=== PATIENT | female | born 1960 | race Caucasian/White ===

== ENCOUNTER 2021-01-29 16:21 | Emergency (ER) | payer MEDICAID ==
[~2021-01-29] VITALS: Ht 172.7 cm; Wt 128.2 kg
[2021-01-29] MEDS ORDERED: normal saline 1000ML IV soln IVB ONE (17:05)
[2021-01-29] MEDS ORDERED: LORazepam 2 mg/ml vial IV ONE (17:05)
--- NOTE | 2021-01-29 17:39 | NUR ---
iv from EMS placed prior to arrival infiltrated. Charge Nurse Haley Coronado notified and at bed side.
[2021-01-29 18:01] LABS: BASOPHILS % (AUTO) 0.6 % (0-1); EOSINOPHILS # (AUTO) 0.2 X10'3 (0-0.9); EOSINOPHILS % (AUTO) 1.9 % (0-6); HEMATOCRIT 38.6 % (35.0-45.0); HEMOGLOBIN 12.6 g/dl (12.0-16.0); LYMPHOCYTES # (AUTO) 1.9 X10'3 (1.1-4.8); LYMPHOCYTES % (AUTO) 22.4 % (21-51); MEAN CORPUSCULAR HEMOGLOBIN 29.4 PG (27.0-31.0); MEAN CORPUSCULAR HGB CONC 32.7 g/dL (33.0-36.5); MEAN PLATELET VOLUME 7.1 FL (7.4-10.4); MONOCYTES # (AUTO) 0.4 X10'3 (0-0.9); MONOCYTES % (AUTO) 4.7 % (2-12); NEUTROPHILS # (AUTO) 5.9 X10'3 (1.8-7.7); NEUTROPHILS % (AUTO) 70.4 % (42-75); PLATELET COUNT 418 X10'3 (140-440); RED BLOOD COUNT 4.29 X10'6 (4.20-5.60); RED CELL DISTRIBUTION WIDTH 14.8 % (11.5-14.5); WHITE BLOOD COUNT 8.4 X10'3 (4.5-11.0)
[2021-01-29 18:25] LABS: ALANINE AMINOTRANSFERASE 52 U/L (12-78); ALBUMIN 4.2 G/DL (3.4-5.0); ALBUMIN/GLOBULIN RATIO 1.1 (1.1-1.5); ALKALINE PHOSPHATASE 173 IU/L (46-116); ANION GAP 13 (8-16); ASPARTATE AMINO TRANSFERASE 24 U/L (10-37); BILIRUBIN,TOTAL 0.3 MG/DL (0.1-1.0); BLOOD UREA NITROGEN 9 MG/DL (7-18); BUN/CREATININE RATIO 8.9 (6.6-38.0); CALCIUM 9.9 MG/DL (8.5-10.1); CHLORIDE 103 MMOL/L (99-107); CREATININE 1.01 MG/DL (0.40-0.90); GLUCOSE 122 MG/DL (70-104); POTASSIUM 3.5 MMOL/L (3.5-5.1); SODIUM 140 MMOL/L (135-145); TOTAL PROTEIN 8.2 G/DL (6.4-8.2); eGFR 56 ML/MIN
[2021-01-29 18:28] LABS: ETHANOL < 0.010 GM/DL (0.0-0.010)
[2021-01-29 18:52] LABS: COLOR,URINE YELLOW (Yellow); GLUCOSE, URINE NEGATIVE (Neg); KETONES,URINE 15 mg/dl (Neg); LEUKOCYTE ESTERASE ,URINE NEGATIVE (Neg); NITRITES, URINE NEGATIVE (Neg); OCCULT BLOOD,URINE NEGATIVE (Neg); PH,URINE 5.5 (4.8-8.0); PROTEIN,URINE 100 mg/dl (Neg); UROBILINOGEN,URINE 0.2 E.U/dL (0.2-1.0)
[2021-01-29 19:01] LABS: UA COLLECTION TYPE CLN CATCH MIDSTREAM
[2021-01-29 19:02] LABS: CLARITY,URINE SLIGHTLY CLOUDY (Clear)
[2021-01-29 19:05] LABS: URINE AMPHETAMINE SCREEN NEGATIVE (Neg); URINE BARBITUATE SCREEN NEGATIVE (Neg); URINE BENZODIAZEPINES SCREEN NEGATIVE (Neg); URINE CANNABINOID SCREEN POSITIVE (Neg); URINE COCAINE SCREEN NEGATIVE (Neg); URINE METHADONE SCREEN NEGATIVE (Neg); URINE OPIATE SCREEN NEGATIVE (Neg); URINE PHENCYCLIDINE SCREEN NEGATIVE (Neg)
[2021-01-29 19:22] LABS: WBC,URINE 0-4 /HPF (0-4)
[2021-01-29 19:23] LABS: BACTERIA,URINE 1+ /HPF (Neg); MUCUS STRANDS MANY /LPF (Neg); RBC,URINE NONE SEEN /HPF (0-2); SQUAMOUS EPITHELIAL CELL,UR MANY /LPF (FEW)
[2021-01-29 19:24] LABS: FINE GRANULAR CAST 0-3 /LPF (NEGATIVE)
[2021-01-29 20:43] VITALS: BP 159/70
== END 2021-01-29 20:47 | disposition home or self-care (01) ==
LOC: ER 16:22
DX: R56.9 Unspecified convulsions (principal); F12.90 Cannabis use, unspecified, uncomplicated; Z88.6 Allergy status to analgesic agent; Z79.899 Other long term (current) drug therapy
CPT/HCPCS: 36415; 80053; 80305; 80320; 81001; 85025; 96361; 96374; 99283; J2060; J7030

== ENCOUNTER 2021-03-10 17:40 | Emergency (ER) | payer MEDICAID ==
[~2021-03-10] VITALS: Ht 172.7 cm; Wt 118.0 kg
[2021-03-10] MEDS ORDERED: sulfamethoxazole/trimethoprim DS (800/160mg) tablet PO ONE (18:55)
[2021-03-10] MEDS ORDERED: acetaminophen 325mg tablet PO ONE (18:55)
[2021-03-10] MEDS ORDERED: LORazepam 0.5 MG tablet PO PRN (18:55)
[2021-03-10] MEDS ORDERED: LEVA15HF6 PO (19:37)
[2021-03-10] MEDS ORDERED: SUCR1TAB PO (19:37)
[2021-03-10] MEDS ORDERED: BUDE10.27 PO (19:37)
[2021-03-10] MEDS ORDERED: CETI10TA14 PO (19:37)
[2021-03-10] MEDS ORDERED: PANT40TA54 PO (19:37)
[2021-03-10] MEDS ORDERED: METF-436 PO (19:37)
[2021-03-10] MEDS ORDERED: AMYL1CAP56 PO (19:37)
[2021-03-10] MEDS ORDERED: AMYL1CAP57 PO (19:37)
[2021-03-10] MEDS ORDERED: LEVE10006 PO (19:37)
[2021-03-10] MEDS ORDERED: AMLO5TAB16 PO (19:37)
[2021-03-10] MEDS ORDERED: MESA1.2T3 PO (19:37)
[2021-03-10] MEDS ORDERED: TIOT4MIS5 INH (19:37)
[2021-03-10] MEDS ORDERED: QUET400T12 PO (19:37)
[2021-03-10] MEDS ORDERED: BECL10.62 IH (19:37)
[2021-03-10] MEDS ORDERED: MIRT-88 PO (19:37)
[2021-03-10] MEDS ORDERED: PRAZ2CAP2 PO (19:37)
[2021-03-10 19:59] LABS: BASOPHILS % (AUTO) 0.4 % (0-1); EOSINOPHILS # (AUTO) 0.3 X10'3 (0-0.9); EOSINOPHILS % (AUTO) 2.7 % (0-6); HEMATOCRIT 35.9 % (35.0-45.0); HEMOGLOBIN 11.7 g/dl (12.0-16.0); LYMPHOCYTES # (AUTO) 1.7 X10'3 (1.1-4.8); LYMPHOCYTES % (AUTO) 18.1 % (21-51); MEAN CORPUSCULAR HEMOGLOBIN 28.9 PG (27.0-31.0); MEAN CORPUSCULAR HGB CONC 32.6 g/dL (33.0-36.5); MEAN CORPUSCULAR VOLUME 88.7 FL (78-98); MEAN PLATELET VOLUME 7.1 FL (7.4-10.4); MONOCYTES # (AUTO) 0.5 X10'3 (0-0.9); MONOCYTES % (AUTO) 4.9 % (2-12); NEUTROPHILS # (AUTO) 7.1 X10'3 (1.8-7.7); NEUTROPHILS % (AUTO) 73.9 % (42-75); PLATELET COUNT 416 X10'3 (140-440); RED BLOOD COUNT 4.04 X10'6 (4.20-5.60); RED CELL DISTRIBUTION WIDTH 15.2 % (11.5-14.5); WHITE BLOOD COUNT 9.6 X10'3 (4.5-11.0)
[2021-03-10 20:10] LABS: ALANINE AMINOTRANSFERASE 52 U/L (12-78); ALBUMIN 3.6 G/DL (3.4-5.0); ALBUMIN/GLOBULIN RATIO 0.9 (1.1-1.5); ALKALINE PHOSPHATASE 175 IU/L (46-116); ANION GAP 11 (8-16); ASPARTATE AMINO TRANSFERASE 15 U/L (10-37); BILIRUBIN,TOTAL 0.3 MG/DL (0.1-1.0); BLOOD UREA NITROGEN 10 MG/DL (7-18); BUN/CREATININE RATIO 10.9 (6.6-38.0); CALCIUM 9.2 MG/DL (8.5-10.1); CHLORIDE 104 MMOL/L (99-107); CREATININE 0.92 MG/DL (0.40-0.90); GLUCOSE 123 MG/DL (70-104); POTASSIUM 3.2 MMOL/L (3.5-5.1); SODIUM 142 MMOL/L (135-145); TOTAL CARBON DIOXIDE 26.9 MMOL/L (24-32); TOTAL PROTEIN 7.5 G/DL (6.4-8.2); eGFR 62 ML/MIN
[2021-03-10 20:19] LABS: ETHANOL < 0.010 GM/DL (0.0-0.010)
[2021-03-10] MEDS ORDERED: levalbuterol 1.25mg/0.5ml nebule IH PRN (20:45)
[2021-03-10] MEDS ORDERED: LIPASE/PROTEASE/AMYLASE 4,200 unit CAPSULE.DR PO PRN (20:45)
[2021-03-10] MEDS ORDERED: quetiapine 100mg tablet PO SCH (21:00)
[2021-03-10] MEDS ORDERED: mirtazapine 15mg tablet PO SCH (21:00)
[2021-03-10] MEDS ORDERED: prazosin 1mg capsule PO SCH (21:00)
--- NOTE | 2021-03-10 23:50 | NUR ---
Pt in main ER at start of shift. Transported to [facility] by Fior nayak on stretcher at 1860. Pt cooperative tearful at times. Seen by PA at 1840. Lainey inventoried home meds taken to pharmacy. Home meds ordered. Med Rec complete. Pt has numerous red areas right axillary areas. Some are open and moist. Examined by PA. Home Cpap in use per with O2. Pt is sleeping at this time.
[2021-03-11] MEDS ORDERED: ipratropium 0.5 MG/2.5ML nebule NEB SCH (02:00)
[2021-03-11] MEDS ORDERED: albuterol 2.5 MG/3 ML nebule NEB SCH (02:00)
[2021-03-11] MEDS: ipratropium/albuterol 3ml nebule NEB SCH ×4 (03:00→20:28)
--- NOTE | 2021-03-11 03:25 | NUR ---
PT SLEEPING COMFORTABLY, DOESN'T WANT WOKEN FOR 0300 MAINTENANCE SVN PER RN
--- NOTE | 2021-03-11 06:05 | NUR ---
Up independantly using FWW to bathroom. Urine sent to lab. Medical Hx obtained from pt. Suicide assessment done. Pt cooperative but irritable. back to sleep at this time.
--- NOTE | 2021-03-11 06:07 | NUR ---
Wounds to rt axillary cleaned with normal saline padded with clean gauze. Red serous drainage on gauze.
[2021-03-11 06:10] LABS: URINE HCG NEGATIVE (NEG)
[2021-03-11 06:18] LABS: URINE AMPHETAMINE SCREEN NEGATIVE (Neg); URINE BARBITUATE SCREEN NEGATIVE (Neg); URINE BENZODIAZEPINES SCREEN NEGATIVE (Neg); URINE CANNABINOID SCREEN POSITIVE (Neg); URINE COCAINE SCREEN NEGATIVE (Neg); URINE METHADONE SCREEN NEGATIVE (Neg); URINE OPIATE SCREEN NEGATIVE (Neg); URINE PHENCYCLIDINE SCREEN NEGATIVE (Neg)
[2021-03-11 06:27] LABS: CLARITY,URINE CLEAR (Clear); COLOR,URINE YELLOW (Yellow); GLUCOSE, URINE NEGATIVE (Neg); KETONES,URINE >=80 mg/dl (Neg); LEUKOCYTE ESTERASE ,URINE NEGATIVE (Neg); NITRITES, URINE NEGATIVE (Neg); OCCULT BLOOD,URINE NEGATIVE (Neg); PROTEIN,URINE NEGATIVE (Neg); UROBILINOGEN,URINE 0.2 E.U/dL (0.2-1.0)
[2021-03-11 06:32] LABS: UA COLLECTION TYPE NON-SPECIFIED
--- NOTE | 2021-03-11 06:47 | NUR ---
PT MOVED FROM OVERFLOW BED 24 TO ER BED 9
[2021-03-11] MEDS ORDERED: pantoprazole 40mg Tablet.DR PO SCH (08:00)
[2021-03-11] MEDS ORDERED: mesalamine 1.2gm ER tablet PO SCH (08:00)
[2021-03-11] MEDS ORDERED: cetirizine 10mg tablet PO SCH (08:00)
[2021-03-11] MEDS ORDERED: non-formulary drug (Beclomethasone Dipropionate (Qvar Redihaler) 2 PUFFS) IH SCH (08:00)
[2021-03-11] MEDS ORDERED: amLODIPine 5mg tablet PO SCH (08:00)
[2021-03-11] MEDS: levetiracetam 250mg tablet PO SCH ×2 (08:40→20:28)
[2021-03-11] MEDS: LIPASE/PROTEASE/AMYLASE 4,200 unit CAPSULE.DR PO SCH ×3 (08:40→17:58)
[2021-03-11] MEDS: metFORMIN 500mg tablet PO SCH ×2 (08:41→17:58)
[2021-03-11] MEDS: sucralfate 1 gm tablet PO SCH ×2 (08:41→20:28)
[2021-03-11] MEDS: budesonide 0.5mg/2ml UD nebule IH SCH ×2 (09:04→20:28)
--- NOTE | 2021-03-11 09:04 | NUR ---
PACKET FAXED TO [facility]
--- NOTE | 2021-03-11 14:08 | NUR ---
[employer] EMPLOYEE INTERVIEWING PT AT BEDSIDE.
--- NOTE | 2021-03-11 14:50 | NUR ---
pt refused 1500 svn-wanted to sleep. no resp. distress observed
--- NOTE | 2021-03-11 15:35 | NUR ---
AL FROM [facility] CALLED FOR NURSE TO NURSE REPORT.
[2021-03-11] MEDS ORDERED: sulfamethoxazole/trimethoprim DS (800/160mg) tablet PO SCH ×2 (17:40→20:00)
[2021-03-11] MEDS ORDERED: mupirocin 2% ointment 22GM TP SCH ×2 (17:40→20:00)
[2021-03-11 21:01] VITALS: BP 132/72
[2021-03-11] MEDS ORDERED: BUSP10TA11 PO (21:32)
== END 2021-03-11 21:21 ==
LOC: ER 17:40
DX: R45.851 Suicidal ideations (principal); R44.0 Auditory hallucinations; L02.412 Cutaneous abscess of left axilla; J44.9 Chronic obstructive pulmonary disease, unspecified; E11.9 Type 2 diabetes mellitus without complications; F31.9 Bipolar disorder, unspecified; F12.90 Cannabis use, unspecified, uncomplicated; Z86.69 Personal history of other diseases of the nervous system and sense organs; Z88.8 Allergy status to other drugs, medicaments and biological substances; Z79.899 Other long term (current) drug therapy
CPT/HCPCS: 36415; 80053; 80305; 80320; 81003; 81025; 82948; 84443; 85025; 94640; 94760; 99285; J7626

== ENCOUNTER 2021-04-06 11:29 | Emergency (ER) | payer MEDICAID ==
[~2021-04-06] VITALS: Ht 172.7 cm; Wt 118.0 kg
[~2021-04-06 11:29] MED LIST: AMYL1CAP56 PO; AMYL1CAP57 PO; ATOR10TA PO; BECL10.62 IH; BUSP5TAB26 PO; CETI10TA14 PO; LEVA15HF6 PO; LEVE10006 PO; LEVE500T PO; MESA1.2T PO; METF-950 PO; MIRT-88 PO; NOR5T PO; PANT40TA54 PO; PRAZ5CAP2 PO; QUET400T12 PO; SUCR1TAB PO; TIOT4MIS5 INH; VENL75CA61 PO
[2021-04-06 13:55] LABS: BASOPHILS % (AUTO) 0.8 % (0-1); EOSINOPHILS # (AUTO) 0.2 X10'3 (0-0.9); EOSINOPHILS % (AUTO) 3.6 % (0-6); HEMATOCRIT 36.7 % (35.0-45.0); LYMPHOCYTES # (AUTO) 1.9 X10'3 (1.1-4.8); LYMPHOCYTES % (AUTO) 33.1 % (21-51); MEAN CORPUSCULAR HEMOGLOBIN 29.3 PG (27.0-31.0); MEAN CORPUSCULAR HGB CONC 32.7 g/dL (33.0-36.5); MEAN CORPUSCULAR VOLUME 89.7 FL (78-98); MEAN PLATELET VOLUME 7.2 FL (7.4-10.4); MONOCYTES # (AUTO) 0.3 X10'3 (0-0.9); MONOCYTES % (AUTO) 5.9 % (2-12); NEUTROPHILS # (AUTO) 3.2 X10'3 (1.8-7.7); NEUTROPHILS % (AUTO) 56.6 % (42-75); PLATELET COUNT 358 X10'3 (140-440); RED BLOOD COUNT 4.09 X10'6 (4.20-5.60); RED CELL DISTRIBUTION WIDTH 15.4 % (11.5-14.5); WHITE BLOOD COUNT 5.6 X10'3 (4.5-11.0)
[2021-04-06 14:04] LABS: ALANINE AMINOTRANSFERASE 21 U/L (12-78); ALBUMIN 4.1 G/DL (3.4-5.0); ALBUMIN/GLOBULIN RATIO 1.1 (1.1-1.5); ALKALINE PHOSPHATASE 136 IU/L (46-116); ANION GAP 9 (8-16); ASPARTATE AMINO TRANSFERASE 17 U/L (10-37); BILIRUBIN,TOTAL 0.3 MG/DL (0.1-1.0); BLOOD UREA NITROGEN 16 MG/DL (7-18); CALCIUM 9.4 MG/DL (8.5-10.1); CHLORIDE 106 MMOL/L (99-107); GLUCOSE 82 MG/DL (70-104); SODIUM 141 MMOL/L (135-145); TOTAL CARBON DIOXIDE 25.8 MMOL/L (24-32); TOTAL PROTEIN 7.8 G/DL (6.4-8.2); eGFR 56 ML/MIN
[2021-04-06 14:10] LABS: MAGNESIUM 2.3 MG/DL (1.5-2.4)
[2021-04-06] MEDS ORDERED: metoclopramide 5 mg/ml inj IV ONE (14:30)
[2021-04-06] MEDS ORDERED: ketorolac tromethamine 15mg/ml inj. IV ONE (14:30)
[2021-04-06] MEDS ORDERED: normal saline 1000ml 1,000 ML IV ONE (14:30)
[2021-04-06 16:16] VITALS: BP 169/91
== END 2021-04-06 16:25 | disposition home or self-care (01) ==
LOC: ER 11:30
DX: G40.909 Epilepsy, unspecified, not intractable, without status epilepticus (principal); R51.9 Headache, unspecified; R07.89 Other chest pain; J44.9 Chronic obstructive pulmonary disease, unspecified; E11.9 Type 2 diabetes mellitus without complications; F31.9 Bipolar disorder, unspecified; F12.90 Cannabis use, unspecified, uncomplicated; Z86.69 Personal history of other diseases of the nervous system and sense organs; Z88.6 Allergy status to analgesic agent; Z88.8 Allergy status to other drugs, medicaments and biological substances; Z79.899 Other long term (current) drug therapy
CPT/HCPCS: 36415; 70450; 71045; 80053; 83735; 83880; 84484; 85025; 93005; 96361; 96374; 96375; 99285; J1885; J2765; J7030

== ENCOUNTER 2021-04-14 12:11 | Emergency (ER) | payer MEDICAID ==
[~2021-04-14] VITALS: Ht 172.7 cm; Wt 118.2 kg
[2021-04-14 12:13] VITALS: BP 112/75
[2021-04-14] MEDS ORDERED: CLOT15CR73 TOP (13:40)
[2021-04-14] MEDS ORDERED: fluconazole 150mg tablet PO ONE (13:45)
== END 2021-04-14 14:16 | disposition home or self-care (01) ==
LOC: ER 12:11
DX: L30.4 Erythema intertrigo (principal); J44.9 Chronic obstructive pulmonary disease, unspecified; E11.9 Type 2 diabetes mellitus without complications; F31.9 Bipolar disorder, unspecified; J45.909 Unspecified asthma, uncomplicated; F12.90 Cannabis use, unspecified, uncomplicated; Z86.69 Personal history of other diseases of the nervous system and sense organs; Z88.6 Allergy status to analgesic agent; Z88.8 Allergy status to other drugs, medicaments and biological substances; Z79.2 Long term (current) use of antibiotics; Z79.899 Other long term (current) drug therapy
CPT/HCPCS: 99283

== ENCOUNTER 2021-05-01 10:02 | Emergency (ER) | payer MEDICAID ==
[~2021-05-01] VITALS: Ht 172.7 cm; Wt 111.4 kg
[~2021-05-01 10:02] MED LIST changes: +CLOT15CR73 TOP; -QUET400T12 PO; +QUET400T13 PO
[2021-05-01] MEDS ORDERED: normal saline 1000ml 1,000 ML IV ONE (15:15)
[2021-05-01] MEDS ORDERED: ondansetron/PF 4mg/2ml inj IV ONE (15:15)
[2021-05-01] MEDS ORDERED: morphine 4 MG/ML inj SYRINge IV ONE (15:15)
--- NOTE | 2021-05-01 15:28 | NUR ---
pt is difficult IV start, attempted twice, another RN to try, pt going to CT first
[2021-05-01 16:47] VITALS: BP 172/81
[2021-05-01 16:48] LABS: BASOPHILS % (AUTO) 0.8 % (0-1); EOSINOPHILS # (AUTO) 0.2 X10'3 (0-0.9); EOSINOPHILS % (AUTO) 3.8 % (0-6); HEMATOCRIT 36.7 % (35.0-45.0); LYMPHOCYTES # (AUTO) 1.9 X10'3 (1.1-4.8); LYMPHOCYTES % (AUTO) 31.4 % (21-51); MEAN CORPUSCULAR HEMOGLOBIN 29.7 PG (27.0-31.0); MEAN CORPUSCULAR HGB CONC 32.6 g/dL (33.0-36.5); MEAN CORPUSCULAR VOLUME 91.1 FL (78-98); MONOCYTES # (AUTO) 0.4 X10'3 (0-0.9); MONOCYTES % (AUTO) 5.7 % (2-12); NEUTROPHILS # (AUTO) 3.6 X10'3 (1.8-7.7); NEUTROPHILS % (AUTO) 58.3 % (42-75); RED BLOOD COUNT 4.03 X10'6 (4.20-5.60); RED CELL DISTRIBUTION WIDTH 15.9 % (11.5-14.5); WHITE BLOOD COUNT 6.2 X10'3 (4.5-11.0)
[2021-05-01 17:18] LABS: ALANINE AMINOTRANSFERASE 47 U/L (12-78); ALBUMIN 3.9 G/DL (3.4-5.0); ALBUMIN/GLOBULIN RATIO 1.1 (1.1-1.5); ALKALINE PHOSPHATASE 164 IU/L (46-116); ANION GAP 13 (8-16); ASPARTATE AMINO TRANSFERASE 17 U/L (10-37); BILIRUBIN,TOTAL 0.2 MG/DL (0.1-1.0); BLOOD UREA NITROGEN 18 MG/DL (7-18); BUN/CREATININE RATIO 21.7 (6.6-38.0); CALCIUM 9.1 MG/DL (8.5-10.1); CHLORIDE 107 MMOL/L (99-107); CREATININE 0.83 MG/DL (0.40-0.90); GLUCOSE 88 MG/DL (70-104); LIPASE < 50 U/L (73-393); POTASSIUM 3.9 MMOL/L (3.5-5.1); SODIUM 142 MMOL/L (135-145); TOTAL CARBON DIOXIDE 22.1 MMOL/L (24-32); TOTAL PROTEIN 7.5 G/DL (6.4-8.2); eGFR 70 ML/MIN
[2021-05-01 17:24] LABS: CLARITY,URINE SLIGHTLY CLOUDY (Clear); COLOR,URINE YELLOW (Yellow); GLUCOSE, URINE NEGATIVE (Neg); KETONES,URINE TRACE mg/dl (Neg); LEUKOCYTE ESTERASE ,URINE TRACE (Neg); NITRITES, URINE NEGATIVE (Neg); OCCULT BLOOD,URINE NEGATIVE (Neg); PROTEIN,URINE NEGATIVE (Neg); UROBILINOGEN,URINE 0.2 E.U/dL (0.2-1.0)
[2021-05-01 17:27] LABS: UA COLLECTION TYPE CLN CATCH MIDSTREAM
[2021-05-01 17:39] LABS: SQUAMOUS EPITHELIAL CELL,UR MANY /LPF (FEW)
[2021-05-01 17:40] LABS: MUCUS STRANDS MODERATE /LPF (Neg)
[2021-05-01 17:41] LABS: BACTERIA,URINE FEW /HPF (Neg); RBC,URINE 0-2 /HPF (0-2); WBC,URINE 0-4 /HPF (0-4); YEAST FEW /HPF (NEGATIVE)
--- NOTE | 2021-05-01 18:22 | NUR ---
called [facility] for ride back, will be here in 15 minutes
== END 2021-05-01 18:27 | disposition home or self-care (01) ==
LOC: ER 10:03
DX: R10.31 Right lower quadrant pain (principal); R56.9 Unspecified convulsions; F15.90 Other stimulant use, unspecified, uncomplicated; J44.9 Chronic obstructive pulmonary disease, unspecified; E11.9 Type 2 diabetes mellitus without complications; F31.9 Bipolar disorder, unspecified; F12.90 Cannabis use, unspecified, uncomplicated; Z86.69 Personal history of other diseases of the nervous system and sense organs; Z88.8 Allergy status to other drugs, medicaments and biological substances; Z88.6 Allergy status to analgesic agent; Z79.2 Long term (current) use of antibiotics; Z79.899 Other long term (current) drug therapy
CPT/HCPCS: 36415; 74176; 80053; 81001; 83690; 85025; 96361; 96374; 96375; 99284; J2270; J2405; J7030

== ENCOUNTER 2021-05-04 14:36 | Emergency (ER) | payer MEDICAID ==
[~2021-05-04] VITALS: Ht 172.7 cm; Wt 110.2 kg
--- NOTE | 2021-05-04 15:06 | NUR ---
SPOKE WITH DR PEDRO REGARDING THE EXTRA MEDICATION THAT PT TOOK THIS AM, BUSPAR 30 MG (TOTAL DAILY DOSE) AND ATARAX 30 MG (TOTAL DAILY DOES) ALL AT ONCE. PER DR PEDRO, POISON CONTROLE DID NOT NEED TO BE CALLED.
[2021-05-04] MEDS: ipratropium/albuterol 3ml nebule NEB ONE ×2 (16:50→16:55)
[2021-05-04] MEDS ORDERED: levalbuterol 1.25mg/0.5ml nebule IH ONE (17:05)
[2021-05-04 17:15] LABS: BASOPHILS % (AUTO) 0.6 % (0-1); EOSINOPHILS # (AUTO) 0.2 X10'3 (0-0.9); EOSINOPHILS % (AUTO) 3.5 % (0-6); HEMATOCRIT 38.4 % (35.0-45.0); HEMOGLOBIN 12.6 g/dl (12.0-16.0); LYMPHOCYTES # (AUTO) 2.1 X10'3 (1.1-4.8); LYMPHOCYTES % (AUTO) 30.8 % (21-51); MEAN CORPUSCULAR HEMOGLOBIN 29.4 PG (27.0-31.0); MEAN CORPUSCULAR HGB CONC 32.8 g/dL (33.0-36.5); MEAN CORPUSCULAR VOLUME 89.4 FL (78-98); MEAN PLATELET VOLUME 7.1 FL (7.4-10.4); MONOCYTES # (AUTO) 0.3 X10'3 (0-0.9); MONOCYTES % (AUTO) 4.6 % (2-12); NEUTROPHILS # (AUTO) 4.1 X10'3 (1.8-7.7); NEUTROPHILS % (AUTO) 60.5 % (42-75); PLATELET COUNT 459 X10'3 (140-440); RED CELL DISTRIBUTION WIDTH 15.3 % (11.5-14.5); WHITE BLOOD COUNT 6.7 X10'3 (4.5-11.0)
[2021-05-04 17:24] LABS: CLARITY,URINE SLIGHTLY CLOUDY (Clear); COLOR,URINE YELLOW (Yellow); GLUCOSE, URINE NEGATIVE (Neg); KETONES,URINE TRACE mg/dl (Neg); LEUKOCYTE ESTERASE ,URINE NEGATIVE (Neg); NITRITES, URINE NEGATIVE (Neg); OCCULT BLOOD,URINE NEGATIVE (Neg); PH,URINE 5.5 (4.8-8.0); PROTEIN,URINE TRACE mg/dl (Neg); UROBILINOGEN,URINE 0.2 E.U/dL (0.2-1.0)
[2021-05-04 17:25] LABS: ALANINE AMINOTRANSFERASE 37 U/L (12-78); ALBUMIN 4.3 G/DL (3.4-5.0); ALBUMIN/GLOBULIN RATIO 1.1 (1.1-1.5); ALKALINE PHOSPHATASE 171 IU/L (46-116); ANION GAP 11 (8-16); ASPARTATE AMINO TRANSFERASE 15 U/L (10-37); BILIRUBIN,TOTAL 0.4 MG/DL (0.1-1.0); BLOOD UREA NITROGEN 17 MG/DL (7-18); BUN/CREATININE RATIO 18.5 (6.6-38.0); CALCIUM 9.5 MG/DL (8.5-10.1); CHLORIDE 107 MMOL/L (99-107); CREATININE 0.92 MG/DL (0.40-0.90); ETHANOL < 0.010 GM/DL (0.0-0.010); GLUCOSE 103 MG/DL (70-104); POTASSIUM 3.9 MMOL/L (3.5-5.1); SODIUM 145 MMOL/L (135-145); TOTAL CARBON DIOXIDE 26.7 MMOL/L (24-32); TOTAL PROTEIN 8.3 G/DL (6.4-8.2); eGFR 62 ML/MIN
[2021-05-04 17:26] LABS: UA COLLECTION TYPE CLN CATCH MIDSTREAM
[2021-05-04 17:30] LABS: MUCUS STRANDS FEW /LPF (Neg); SQUAMOUS EPITHELIAL CELL,UR MANY /LPF (FEW)
[2021-05-04 17:31] LABS: CAL OXALATE CRYSTALS 4+ /HPF (NEGATIVE)
[2021-05-04 17:32] LABS: WBC,URINE NONE SEEN /HPF (0-4); YEAST FEW /HPF (NEGATIVE)
[2021-05-04 17:33] LABS: BACTERIA,URINE 1+ /HPF (Neg); RBC,URINE 0-2 /HPF (0-2)
[2021-05-04 18:00] LABS: URINE AMPHETAMINE SCREEN NEGATIVE (Neg); URINE BARBITUATE SCREEN NEGATIVE (Neg); URINE BENZODIAZEPINES SCREEN NEGATIVE (Neg); URINE CANNABINOID SCREEN POSITIVE (Neg); URINE COCAINE SCREEN NEGATIVE (Neg); URINE METHADONE SCREEN NEGATIVE (Neg); URINE OPIATE SCREEN NEGATIVE (Neg); URINE PHENCYCLIDINE SCREEN NEGATIVE (Neg)
--- NOTE | 2021-05-04 18:54 | NUR ---
pt agitated during belonging collection process. pt throwing personal items onto walker.
--- NOTE | 2021-05-04 19:00 | NUR ---
ASSUMED CARE OF PATIENT WITH RN NAEL STEELE ORIENTATION . PT RESTING PEACFULLY IN [place] PRONE RESP EVEN AND UNLABORED PT IN THE DIRECT LINE OF SIGHT OF NURSING STAFF . BELONGING LIST COMPLETED AT BEDSIDE PRIOR TO ASSUMING CARE . MED REC FAXED TO PHARMACY . REPORT GIVEN THAT PT WAS AWAITING PLACEMENT . WAS SEEN BY [facility] THIS AFTERNOON . PT UPDATED PLAN OF CARE NO QURSTIONS ASKED PT COROPORTATIVE .
--- NOTE | 2021-05-04 19:06 | NUR ---
ASSUMED CARE OF PATIENT SITTING UPRIGHT IN BED . PT LOOKING DOWN POOR EYE CONTACT NOT WANTING TO ENGAGE IN CONVERSASTION . PT UPDATED PLAN OF CARE AND ASKED PATIENT IF SHE PROVIDED AN URINE . PT REPONDED WITH IRRIATTION , WHEN SHE WAS ASKED FOR A SPECIMAN AFTER ALREADY PROVIDING ONE . INFORMED PT I WOULD CHECK THE STAUS OF THE URINE . PT NOT WANTING TO ANSWER ANY OTHER QUESTIONS . PT IN THE DIRECT LINE OF SIGHT OF NURSING STAFFF AND WEARING GREEN SCRUBS .
[2021-05-04] MEDS ORDERED: HYDR-3686 PO (19:21)
[2021-05-04] MEDS ORDERED: HYDR-3717 PO (19:21)
[2021-05-04] MEDS ORDERED: GABA-530 PO (19:21)
[2021-05-04] MEDS ORDERED: AMLO-93 PO (20:44)
[2021-05-04] MEDS ORDERED: BUSP5TAB3 PO (20:48)
[2021-05-04] MEDS ORDERED: ATOR10TA70 PO (20:48)
[2021-05-04] MEDS ORDERED: LEVA15HF4 INH (20:51)
[2021-05-04] MEDS ORDERED: CETI10TA15 PO (20:51)
[2021-05-04] MEDS ORDERED: MESA1.2T PO (20:53)
[2021-05-04] MEDS ORDERED: LEVE500T99 PO (20:53)
[2021-05-04] MEDS ORDERED: LEVE10006 PO (20:53)
[2021-05-04] MEDS ORDERED: METF-436 PO (20:58)
[2021-05-04] MEDS ORDERED: VENL25TA48 PO (20:58)
[2021-05-04] MEDS ORDERED: PANT-47 PO (20:58)
[2021-05-04] MEDS ORDERED: PRAZ5CAP2 PO (20:58)
[2021-05-04] MEDS ORDERED: MIRT-67 PO (20:58)
[2021-05-04] MEDS ORDERED: QUET-1 PO (20:58)
--- NOTE | 2021-05-04 22:00 | NUR ---
PT WHEEL CHAIRED OVER TO OVERFLOW BED 22
--- NOTE | 2021-05-04 22:04 | NUR ---
PATIENT'S PACKET WAS SENT TO [facility].
--- NOTE | 2021-05-04 22:20 | NUR ---
Patient brought over via wheelchair- able to transfer self independently onto bed, threw her sheets around, removed boot from her foot and threw it to the end of the bed. Refusing to speak more at this time. Also noted to have her seated walker at bedside.
[2021-05-04] MEDS ORDERED: LIPASE/PROTEASE/AMYLASE 10,500 units CAPSULE.DR PO PRN (23:00)
[2021-05-04] MEDS ORDERED: VENL75CA61 PO (23:04)
--- NOTE | 2021-05-04 23:19 | NUR ---
Patient resting in bed, appears to be asleep at this time. Even and unlabored respirations.
[2021-05-04] MEDS ORDERED: LEVALBUTEROL TARTRATE IH PRN (23:20)
--- NOTE | 2021-05-05 00:31 | NUR ---
Patient laying on her left side- resting quietly, appears to be asleep.
--- NOTE | 2021-05-05 01:19 | NUR ---
Patient appears to be asleep.
[2021-05-05] MEDS ORDERED: LIPASE/PROTEASE/AMYLASE 4,200 unit CAPSULE.DR PO PRN (02:10)
--- NOTE | 2021-05-05 02:19 | NUR ---
Patient resting quietly- appears to be asleep.
--- NOTE | 2021-05-05 04:10 | NUR ---
Patient laying on her left side- appears to be asleep.
[2021-05-05] MEDS ORDERED: QUET400T54 PO (04:48)
--- NOTE | 2021-05-05 04:59 | NUR ---
Patient ambulatory to and from bathroom with steady gait.
[2021-05-05 05:20] VITALS: BP_DIAS 72
[2021-05-05] MEDS ORDERED: sucralfate 1 gm tablet PO SCH (07:00)
--- NOTE | 2021-05-05 07:13 | NUR ---
Patient resting on her left side with eyes closed.
[2021-05-05] MEDS ORDERED: metFORMIN 500mg tablet PO SCH (07:30)
[2021-05-05] MEDS ORDERED: lisinopril 20mg tablet PO SCH (08:00)
[2021-05-05] MEDS ORDERED: pantoprazole 40mg Tablet.DR PO SCH (08:00)
[2021-05-05] MEDS ORDERED: hydrOXYzine 10 MG tablet PO SCH (08:00)
[2021-05-05] MEDS ORDERED: atorvastatin 10mg tablet PO SCH (08:00)
[2021-05-05] MEDS ORDERED: mesalamine 1.2gm ER tablet PO SCH (08:00)
[2021-05-05] MEDS ORDERED: amLODIPine 5mg tablet PO SCH (08:00)
[2021-05-05] MEDS ORDERED: busPIRone 5mg tablet PO SCH (08:00)
[2021-05-05] MEDS ORDERED: clotrimazole/betamethasone diproprion. cream 15gm TP SCH (08:00)
[2021-05-05] MEDS ORDERED: LIPASE/PROTEASE/AMYLASE 4,200 unit CAPSULE.DR PO SCH (08:00)
[2021-05-05] MEDS ORDERED: levetiracetam 250mg tablet PO SCH ×2 (08:00)
[2021-05-05] MEDS ORDERED: cetirizine 10mg tablet PO SCH (08:00)
[2021-05-05] MEDS ORDERED: venlafaxine XR 75mg capsule (Q24H) PO SCH ×2 (08:00)
[2021-05-05] MEDS ORDERED: gabapentin 300mg capsule PO SCH (08:00)
[2021-05-05] MEDS ORDERED: budesonide 0.5mg/2ml UD nebule IH SCH (08:00)
--- NOTE | 2021-05-05 08:12 | NUR ---
Patient states that she is allergic to black pepper (seasoning) not brito pepper. States she has informed "us" three times and keeps rec it on her meal trays. Change made in [employer] at this time, and dietary faxed to make the change as well
[2021-05-05 09:32] VITALS: BP_SYST 135
--- NOTE | 2021-05-05 10:25 | NUR ---
Patient being discharged and is angry, throwing stuff around stomping her feet, yelling at staff. Security called for standby. Yellow cab called for transport to [facility] as patient is homeless.
[2021-05-05] MEDS ORDERED: hydrOXYzine 25 MG tablet PO SCH (21:00)
[2021-05-05] MEDS ORDERED: mirtazapine 15mg tablet PO SCH (21:00)
[2021-05-05] MEDS ORDERED: non-formulary drug (Quetiapine Fumarate (Quetiapine Fumarate ER) 1 TAB) PO SCH (21:00)
[2021-05-05] MEDS ORDERED: prazosin 5mg capsule PO SCH (21:00)
[2021-05-05] MEDS ORDERED: QUETIAPINE 200 MG TAB.SR.24H PO SCH (21:00)
== END 2021-05-05 10:40 | disposition home or self-care (01) ==
LOC: ER 14:36
DX: R45.851 Suicidal ideations (principal); Z20.822 Contact with and (suspected) exposure to COVID-19; F31.9 Bipolar disorder, unspecified; T43.592A Poisoning by other antipsychotics and neuroleptics, intentional self-harm, initial encounter; E11.9 Type 2 diabetes mellitus without complications; J44.9 Chronic obstructive pulmonary disease, unspecified; F17.200 Nicotine dependence, unspecified, uncomplicated; F12.90 Cannabis use, unspecified, uncomplicated; Z86.69 Personal history of other diseases of the nervous system and sense organs; Z88.6 Allergy status to analgesic agent; Z88.8 Allergy status to other drugs, medicaments and biological substances; Z79.2 Long term (current) use of antibiotics; Z79.899 Other long term (current) drug therapy; Y92.89 Other specified places as the place of occurrence of the external cause
CPT/HCPCS: 36415; 71045; 80053; 80305; 80320; 81001; 85025; 87635; 93005; 94640; 99285; C9803; 94760; J7614; J7626